=== PATIENT | born 1970 | race Caucasian/White ===

== ENCOUNTER 2023-01-27 21:27 | Emergency (ER) | payer OTHER, SELFPAY ==
[2023-01-27 21:34] VITALS: BP 122/81; PULSE 68; RESP 16; TEMP 36.4; O2SAT 98; BMI 28.1
--- NOTE | 2023-01-27 21:40 | DI.RAD.S_ITS ---
PROCEDURE: XR WRIST RT MIN 3V INDICATIONS: struck hand on work object TECHNIQUE: 4 views of the wrist were acquired. COMPARISON: None. FINDINGS: Bones: No fractures or dislocations. No suspicious bony lesions. Scaphoid view: The scaphoid appears intact. Soft tissues: No suspicious soft tissue calcifications. IMPRESSION: 1. No fracture or dislocation. Dictated by: Johan Chris M.D. on 01/27/2023 at 22:55 Approved by: Johan Chris M.D. on 01/27/2023 at 22:56
--- NOTE | 2023-01-27 21:58 | ED_ITS ---
HPI - Extremity Injury (Upper) General Chief Complaint: Extremity Injury, Upper Stated Complaint: Wrist inj Time Seen by Provider: 01/27/23 21:30 Source: patient Mode of arrival: Ambulatory History of Present Illness HPI narrative: 52-year-old patient nonsmoker without chronic medical history presents with an injury to the right hand while at work just prior to arrival. 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 This happened earlier in the day and it was thought to be moving in the right direction and then they attempted to use a hammer which sent searing pain through the hand and wrist. The symptoms are much worse with any attempts at range of motion or lifting of objects and improves with rest. There is no radiation of pain, no elbow or shoulder pain. Related Data Allergies Allergy/AdvReac Type Severity Reaction Status Date / Time No Known Drug Allergies Allergy Verified 01/27/23 21:34 Review of Systems Review of Systems Narrative: GENERAL: Denies chills, fatigue, malaise, fever, sweats. HEENT: Denies sinus pain, ear pain, sore throat, difficulty swallowing, dizziness. RESPIRATORY: Denies dyspnea, cough, wheezing, hemoptysis, sputum. CARDIOVASCULAR: Denies chest pain, palpitations, orthopnea, edema, GASTROINTESTINAL: Denies nausea, vomiting, abdominal pain, diarrhea, constipatio n, melena. : Denies dysuria, frequency, incontinence, hematuria, urinary retention. MUSCULOSKELETAL: See HPI SKIN: Denies rash, skin lesions, or other NEUROLOGIC: See HPI PSYCHIATRIC: No concerning psychosocial issues. 12 point review of systems is negative except for those stated above Patient History Social History Smoking Status: Never smoker Smoking Status: Never smoker Substance Use Type: does not use Exam Narrative Exam Narrative: GEN: AOx3 and in mild distress EYES: Pupils are equal, round, and reactive to light and accommodation. Extraoccular muscles are intact bilaterally. There is no subconjunctival hemorrhage or exudate. CHEST: Lungs are clear to auscultation bilaterally and free of wheezes, rales, or rhonchi. Heart rate is regular rhythm, there are no murmurs, clicks, rubs, or gallops. There is no chest wall tenderness. ABD: Abdomen is soft and nontender. There is no guarding or rebound. Bowel sounds are normal in all 4 quadrants. There is no mass or organomegaly. EXT: Full but painful range of motion of right hand and wrist, no obvious deformity, closed, isolated and neurovascularly intact, tender to palpate over ulnar styloid and 5th metacarpal, patient able to make a fist, cap refill less than 2 seconds SKIN: Warm, pink, and dry. No erythema or rash Initial Vital Signs Initial Vital Signs: Vital Signs Temperature 97.6 F 01/27/23 21:34 Pulse Rate 68 01/27/23 21:34 Respiratory Rate 16 01/27/23 21:34 Blood Pressure 122/81 01/27/23 21:34 Pulse Oximetry 98 01/27/23 21:34 Oxygen Delivery Method Room Air 01/27/23 21:34 Procedures Orthopedic Splinting/Casting Injury #1: Side: right Upper Extremity Injury Location: wrist Upper Extremity Immobilizer: wrist splint Post splinting neuro exam: intact Post splinting vascular exam: intact Placed by: Nursing Course Orders Ordered: ED Orders 01/27/23 21:40 XR wrist RT min 3V Stat Vital Signs Vital signs: Vital Signs - 8 hr 01/27/23 21:34 Temperature 97.6 F Pulse Rate 68 Respiratory Rate 16 Blood Pressure 122/81 Pulse Oximetry 98 Oxygen Delivery Method Room Air MDM - Extremity Injury (Upper) MDM Narrative Medical decision making narrative: [52] year old patient presents with Multiple etiologies for patient's symptoms considered including, but not limited to: [Contusion versus fracture versus dislocation versus other] Prior Charts reviewed in our EMR Primary Historian: patient Imaging reviewed: No fracture or dislocation Patient has reassuring history and physical exam with low suspicion for fracture, dislocation. This is closed, isolated and neurovascularly intact. Painful with range of motion but improved with splint. Recommended Tylenol and Motrin for pain, splint for comfort, follow-up as dictated by work injury protocols Findings and discharge diagnosis discussed with patient/family followed by verbalization of understanding Return precautions discussed with patient/family whom verbalize understanding of diagnosis and plan Discharge Plan Departure Patient Disposition: Home Clinical Impression: Right wrist sprain, Contusion of right wrist Instructions: DI for Wrist Sprain, DI for Contusion Activity Restrictions/Additional Instructions: *You have been diagnosed with [right wrist sprain and contusion, as we discussed your history and physical exam is very reassuring and x-ray shows no evidence of fracture or dislocation.] *What to do: *Please continue to take your regular medications as directed. [ ] New medication prescriptions sent to your pharmacy: [ ] [ ] New medication written as a paper prescription [ ] No new medications given *Please follow up with your primary care provider in 2-3 days, call for an appointment. Let them know you were seen in the Emergency Department and that we ask that you be seen in follow up. We will electronically transmit a record of today's note if your PCP is in our system *If you do not have a primary care provider please contact the [facility] Resource line at [phone]. They will ask some questions about your medical history and help get you set up with a doctor in the community. *Return to Emergency Department if you should have any new, worsening or concerning symptoms, such as [fever greater than 101 F, shaking chills, worsening pain, persistent vomiting or other bothersome symptoms] Stand Alone Forms: Patient Portal/API, Work Release Note
== END 2023-01-27 23:32 | disposition home or self-care (01) ==
PROVIDERS: Emergency Provider Emergency Medicine
DX: S63.501A Unspecified sprain of right wrist, initial encounter (principal); S60.211A Contusion of right wrist, initial encounter; W22.8XXA Striking against or struck by other objects, initial encounter; Y99.0 Civilian activity done for income or pay
CPT/HCPCS: 73110; 99282; 99283